=== PATIENT | male | born 1975 | race Hispanic/Latino ===

== ENCOUNTER 2025-06-17 10:22 | Emergency (ER) | payer SELFPAY ==
--- NOTE | ~2025-06-17 | CT_ITS ---
CT abdomen pelvis w con Clinical History: abdominal pain . Comparison: None Technique: Axial images lung bases to symphysis pubis IV contrast information not listed in PACS Coronal, sagittal reformats CT images acquired with automatic exposure control for dose reduction DLP: 266 mGy-cm Findings: Lung bases: Clear. Visualized heart and pericardium: Unremarkable. Liver: Unremarkable. Gallbladder: Unremarkable. Spleen: Unremarkable. Pancreas: Unremarkable. Adrenal glands: Unremarkable. Kidneys: Right kidney- Hydronephrosis. Small stones. A few cortical cysts. Left kidney- Hydronephrosis. 3 mm stone. Distal esophagus/stomach: Unremarkable. Small bowel loops: Normal caliber and wall thickness. Colon: Normal caliber and wall thickness. Normal RLQ appendix. Nodes: No enlarged nodes. Peritoneum: No ascites. No free air. Urinary bladder: Palomino catheter. 3 dependent stones, 10 mm each the larger 2. Wall thickening Prostate: Prominent. Bones: No acute bony abnormality. Soft tissues: Unremarkable. Aorta: No aneurysm or dissection. IVC: Unremarkable. Main portal vein/SMV/splenic vein: Patent. IMPRESSION: 1. Bilateral hydronephrosis. No obstruction or ureteral stone noted. 2. At least 3 urinary bladder stones, the largest 10 mm. 3. Small bilateral kidney stones. 4. Cystitis not excluded. 5. Enlarged prostate. Reviewed, dictated and finalized at location R.
[2025-06-17 10:41] VITALS: BP 146/81; PULSE 102; RESP 20; O2SAT 99
[2025-06-17 11:14] LABS: Hematocrit 43.6 % (42.0-52.0); Hemoglobin 14.7 g/dL (14.0-18.0); Immature Granulocyte Percent A 0.3 % (0-0.5); Lymphocytes Absolute Auto 1.03 K/mm3 (0.9-3.2); Mean Corpuscular HGB Conc 33.7 g/dl (32-36); Mean Corpuscular Hemoglobin 28.8 pg (26-34); Mean Corpuscular Volume 85.5 fl (80-100); Nucleated Red Blood Cells Absolute Auto 0.000 K/mm3 (0.0-0.012); Nucleated Red Blood Cells Perc 0.0 % (0.0-0.2); Platelet Count Result 157 k/mm3 (150-375); Red Blood Count 5.10 M/mm3 (4.6-6.20); White Blood Count 3.6 K/mm3 (4.5-10.0)
[2025-06-17 11:18] LABS: Add Urine Microscopic? YES; Appearance Urine Cloudy (Clear); Glucose Urine UA Negative (Negative); Leukocyte Esterase Ur Negative LEU/UL (Negative); Nitrate Urine Negative (Negative); Non Pathogenic Casts 0-2; Specific Grav Ur 1.017 (1.001-1.035)
[2025-06-17 11:28] LABS: Alanine Aminotransferase 35 U/L (6-50); Albumin Level 4.2 g/dL (3.5-5.1); Alkaline Phosphatase 53 U/L (38-126); Anion Gap 7 mmol/L (4-12); Aspartate Amino Transferase 33 U/L (17-59); Bilirubin,Total 0.6 mg/dL (0.2-1.3); Blood Urea Nitrogen 18 mg/dL (9-20); Calcium 8.6 mg/dL (8.4-10.2); Carbon Dioxide 23 mmol/L (22-30); Chloride 100 mmol/L (98-107); Estimated Glomerular Filt Rate > 60; Glucose 118 mg/dL (65-110); Potassium 3.8 mmol/L (3.4-5.0); Sodium 130 mmol/L (137-145); Total Protein 7.1 g/dL (6.3-8.2)
--- NOTE | 2025-06-17 11:54 | ED_ITS ---
HPI - General Adult General Chief complaint: Abdominal Pain Stated complaint: abdominal pain Time Seen by Provider: 06/17/25 10:43 History of Present Illness HPI narrative: Ryan Edmondson is a 49-year-old Wolof-speaking male, through the diplomatic interpreter/translator he reported no past medical history who presents today with urinary retention. He states that he feels like he weighs has a problem urinating and the past 10 days is been she a lot more difficult with just dribbling and is last time he is able to get any urine out was about 10:00 p.m. last night. Here I have having a lot of abdominal distension and pain and unable to urinate. A Palomino catheter was inserted on arrival with about 900 mL of clear yellow urine out. He states that he has had some right-sided flank pain about 2 days ago but denies any pain at this time to that area. Since the Palomino has been and he states that his pain is currently a 0/10. He denies any issues with his bowel movements, he is not on any medications daily. Related Data Allergies Allergy/AdvReac Type Severity Reaction Status Date / Time diclofenac Allergy Intermediate Rash Verified 06/17/25 11:06 Review of Systems 2 Review of Systems: All systems reviewed & are unremarkable except as noted in HPI and below Exam 2 Narrative: GENERAL: Well-appearing, well-nourished, and in no acute distress. HEAD: Normocephalic, atraumatic. EYES: PERRLA and EOMI. ENT: Nares clear, no rhinorrhea or epistaxis. Mucous membranes moist. Oropharynx without tonsillar hypertrophy exudate or other lesions. NECK: Supple. No adenopathy or masses. No carotid bruits or JVD CHEST: Clear to auscultation. No respiratory distress. No wheezes rales or rhonchi HEART: Regular rate and rhythm. No murmur heard. Normal peripheral pulses. ABDOMEN: Soft, nontender, nondistended, normal active bowel sounds- post Palomino catheter on immediate arrival. EXTREMITIES: Normal range of motion. No edema. SKIN: Warm, dry, no rash. NEURO: No focal deficits. Alert and oriented x3. PSYCH: Normal mood and affect. Course Vital Signs Vital signs: Vital Signs Pulse Rate 102 H 06/17/25 10:41 Respiratory Rate 20 06/17/25 10:41 Blood Pressure 146/81 H 06/17/25 10:41 Pulse Oximetry 99 06/17/25 10:41 Oxygen Delivery Room Air 06/17/25 10:41 Pulse Rate 80 06/17/25 14:17 Respiratory Rate 16 06/17/25 14:17 Blood Pressure 131/80 06/17/25 14:17 Pulse Oximetry 97 06/17/25 14:17 Oxygen Delivery Room Air 06/17/25 10:41 Medical Decision Making MDM Narrative Medical decision making narrative: 49-year-old male who presents with acute urinary retention that started your sore the past 10 days and he had last been able to urinate at 10:00 p.m. last night. Palomino catheter was placed on arrival and had 900 mL out concern for obstructing ureterolithiasis, enlarged prostate, infection CBC-white blood cell 3.6, hemodynamically stable CMP-sodium 130, glucose 118 UA-1+ blood RBCs 11-20 CT ab/pelv scan- . Bilateral hydronephrosis. No obstruction or ureteral stone noted. 2. At least 3 urinary bladder stones, the largest 10 mm. 3. Small bilateral kidney stones. 4. Cystitis not excluded. 5. Enlarged prostate. Consultation with Urology Karina Rogel who recommends starting Flomax daily and will see him in outpatient clinic and 1-2 weeks for a renal ultrasound and evaluation in the meantime he may keep the Palomino catheter in to help drain his bladder. Medical Records Medical records reviewed: Yes I reviewed the external patient's medical records. Vital Signs Vital Signs: Vital Signs Pulse Rate 102 H 06/17/25 10:41 Respiratory Rate 20 06/17/25 10:41 Blood Pressure 146/81 H 06/17/25 10:41 Pulse Oximetry 99 06/17/25 10:41 Oxygen Delivery Room Air 06/17/25 10:41 Pulse Rate 80 06/17/25 14:17 Respiratory Rate 16 06/17/25 14:17 Blood Pressure 131/80 06/17/25 14:17 Pulse Oximetry 97 06/17/25 14:17 Oxygen Delivery Room Air 06/17/25 10:41 vitals reviewed Lab Data Lab results reviewed: Yes I reviewed the patient's lab results. 06/17/25 11:09 06/17/25 11:08 Labs: Lab Results 06/17/25 06/17/25 Range/Units 11:08 11:09 WBC 3.6 L (4.5-10.0) K/mm3 RBC 5.10 (4.6-6.20) M/mm3 Hgb 14.7 (14.0-18.0) g/dL Hct 43.6 (42.0-52.0) % MCV 85.5 (80-100) fl MCH 28.8 (26-34) pg MCHC 33.7 (32-36) g/dl RDW 13.2 (11.5-14.5) % Plt Count 157 (150-375) k/mm3 MPV 9.8 (7.4-10.4) fl Immature Gran % (Auto) 0.3 (0-0.5) % Neut % (Auto) 58.0 (45.5-73.1) % Lymph % (Auto) 28.6 (18.3-44.2) % [place] % (Auto) 9.7 H (2.6-8.5) % Eos % (Auto) 2.8 (0-4.4) % Baso % (Auto) 0.6 (0.2-1.2) % Lymph # (Auto) 1.03 (0.9-3.2) K/mm3 [place] # (Auto) 0.4 (0.1-0.6) K/mm3 Eos # (Auto) 0.1 (0-0.3) K/mm3 Baso # (Auto) 0.0 (0.0-0.1) K/mm3 Abs Immat Gran (auto) 0.01 (0.00-0.031) K/mm3 Absolute Neuts (auto) 2.1 (1.3-6.7) K/mm3 Absolute Nucleated RBC 0.000 (0.0-0.012) K/mm3 Nucleated RBC % 0.0 (0.0-0.2) % Sodium 130 L (137-145) mmol/L Potassium 3.8 (3.4-5.0) mmol/L Chloride 100 (98-107) mmol/L Carbon Dioxide 23 (22-30) mmol/L Anion Gap 7 (4-12) mmol/L BUN 18 (9-20) mg/dL Creatinine 0.85 (0.7-1.3) mg/dL Estim Creat Clear Calc Not Reportable Estimated GFR > 60 (59 - ) Glucose 118 H (65-110) mg/dL Calcium 8.6 (8.4-10.2) mg/dL Total Bilirubin 0.6 (0.2-1.3) mg/dL AST 33 (17-59) U/L ALT 35 (6-50) U/L Alkaline Phosphatase 53 (38-126) U/L Total Protein 7.1 (6.3-8.2) g/dL Albumin 4.2 (3.5-5.1) g/dL Urine Color Yellow (Yellow) Urine Appearance Cloudy H (Clear) Urine pH 6.5 (5.0-9.0) Ur Specific [place] 1.017 (1.001-1.035) Urine Protein Negative (Negative) mg/dL Urine Glucose (UA) Negative (Negative) mg/dL Urine Ketones Negative (Negative) mg/dL Ur Blood (Man) 1+ H (Negative) Urine Nitrate Negative (Negative) Urine Bilirubin Negative (Negative) Urine Urobilinogen 0.2 (<2.0) mg/dL Leukocyte Esterase Rfl Negative (Negative) GORDON/UL Urine RBC 11-20 H (0-2) /hpf Urine WBC 0-5 (0-3) /hpf Ur Squamous Epith Cells None seen (Few) /hpf Urine Bacteria None seen /hpf Urine Casts 0-2 Imaging Data Radiologist's impression: Impressions Abdomen/Pelvis CT 06/17/25 12:01 IMPRESSION: 1. Bilateral hydronephrosis. No obstruction or ureteral stone noted. 2. At least 3 urinary bladder stones, the largest 10 mm. 3. Small bilateral kidney stones. 4. Cystitis not excluded. 5. Enlarged prostate. Discharge Plan Discharge Clinical Impression: Bilateral kidney stones, Acute urinary retention Patient Disposition: Home Condition: Stable Instructions: Antibiotic Form, Tamsulosin (By mouth), Palomino Catheter Placement and Care (ED), Bladder Stones (ED) Additional Instructions: Continue to you use the Palomino catheter you may switch it to a leg bag during the day the larger bag at bedtime. Make sure your cleansing around the catheter twice daily. Start taking the Flomax once daily. You need to call to follow up with Urology outpatient today they will see you in the next 1-2 weeks call [phone] If you develop any new or worsening symptoms or feel like your not emptying your bladder with the Palomino catheter then return to the emergency department. Patient Language: Wolof Prescriptions: New tamsulosin [Flomax] 0.4 mg capsule 0.4 mg PO DAILY Qty: 30 0RF Follow-up/Referrals: UNKNOWN,DOCTOR [Primary Care Provider] Deana Rogel APRN [Advanced Practice Nurse, Urology] - 3 Days Time of Disposition: 13:36
[2025-06-17 12:15] VITALS: BP 122/75; PULSE 78; RESP 16; O2SAT 98
[2025-06-17 13:39] VITALS: BP 139/86; PULSE 76; RESP 16; O2SAT 96
[2025-06-17 14:17] VITALS: BP 131/80; PULSE 80; RESP 16; O2SAT 97
== END 2025-06-17 14:18 | disposition home or self-care (01) ==
PROVIDERS: Emergency Provider Nurse Practitioner Family
DX: N20.0 Calculus of kidney (principal); N40.1 Benign prostatic hyperplasia with lower urinary tract symptoms; R33.8 Other retention of urine; N13.30 Unspecified hydronephrosis; N21.0 Calculus in bladder
CPT/HCPCS: 36415; 51702; 74177; 80053; 81001; 85025; 99284; Q9967